=== PATIENT | male | born 1960 | race Caucasian/White ===

== ENCOUNTER 2018-01-23 00:25 | Inpatient (IN) | payer MEDICAID ==
[2018-01-23] MEDS ORDERED: MOM 30ML SUSPENSION UDC PO (01:45)
[2018-01-23] MEDS ORDERED: traZODone 50 MG TAB PO (01:45)
[2018-01-23] MEDS ORDERED: ACETAMINOPHEN TAB 650MG DOSE (2X325MG) PO (01:45)
[2018-01-23] MEDS ORDERED: MAALOX 30 ML SUSP *UDC PO (01:45)
[2018-01-23] MEDS: LEVOTHYROXINE 137MCG TABLET (0.137MG) PO (06:11)
[2018-01-23] MEDS: ENALAPRIL MALEATE 5 MG TAB PO ×2 (08:21→11:15)
[2018-01-23] MEDS: amLODIPine 10 MG TAB PO (08:21)
[2018-01-23] MEDS: METOPROLOL TARTRATE 100 MG TAB PO ×2 (08:22→20:40)
[2018-01-23] MEDS: FOLIC ACID 1 MG TAB PO (08:22)
[2018-01-23] MEDS ORDERED: METOPROLOL TARTRATE 100 MG TAB PO (09:00)
[2018-01-23 12:33] LABS: BASO % 0.3 % (0.0-1.0); EOS # 0.1 10^3/uL (0.0-0.50); EOS % 0.7 % (0.0-3.0); HEMATOCRIT 43.7 % (42.0-52.0); HEMOGLOBIN 15.2 g/dl (13.5-17.5); IMMATURE GRANULOCYTE % 0.2 % (0-3.0); LYMPH # 1.7 10^3/uL (1.5-4.5); LYMPH % 18.2 % (24.0-44.0); MEAN CORPUSCULAR HEMOGLOBIN 30.5 pg (27.0-33.0); MEAN CORPUSCULAR HGB CONC 34.8 g/dl (32.0-36.5); MEAN CORPUSCULAR VOLUME 87.8 fl (80.0-96.0); NEUTROPHILS # 6.3 10^3/uL (1.8-7.7); NEUTROPHILS % 69.6 % (36.0-66.0); PLATELET COUNT, AUTOMATED 302 10^3/uL (150-450); RED BLOOD COUNT 4.98 10^6/uL (4.30-6.10); WHITE BLOOD COUNT 9.1 10^3/uL (4.0-10.0)
[2018-01-23 13:03] LABS: ALBUMIN 3.9 GM/DL (3.2-5.2); ALKALINE PHOSPHATASE 104 U/L (45-117); ALT/SGPT 38 U/L (12-78); ANION GAP 8 MEQ/L (8-16); AST/SGOT 28 U/L (7-37); BILIRUBIN,TOTAL 0.3 MG/DL (0.2-1.0); BLOOD UREA NITROGEN 15 MG/DL (7-18); CARBON DIOXIDE LEVEL 28 MEQ/L (21-32); CHLORIDE LEVEL 101 MEQ/L (98-107); CPK CREATINE PHOSPHOKINASE 233 U/L (39-308); CREATININE FOR GFR 0.81 MG/DL (0.70-1.30); GLOMERULAR FILTRATION RATE > 60.0 (>56); GLUCOSE, FASTING 107 MG/DL (70-100); POTASSIUM SERUM 4.3 MEQ/L (3.5-5.1); SODIUM LEVEL 137 MEQ/L (136-145); TOTAL PROTEIN 7.8 GM/DL (6.4-8.2)
[2018-01-23] MEDS: ESCITALOPRAM OXALATE 5MG TABLET (LEXAPRO) PO (15:28)
[2018-01-24] MEDS: LEVOTHYROXINE 137MCG TABLET (0.137MG) PO (06:11)
[2018-01-24] MEDS: FOLIC ACID 1 MG TAB PO (08:31)
[2018-01-24] MEDS: amLODIPine 10 MG TAB PO (08:31)
[2018-01-24] MEDS: ESCITALOPRAM OXALATE 5MG TABLET (LEXAPRO) PO (08:31)
[2018-01-24] MEDS: ENALAPRIL MALEATE 10 MG TAB PO (08:32)
[2018-01-24] MEDS: METOPROLOL TARTRATE 100 MG TAB PO (08:32)
== END 2018-01-24 13:05 | disposition home or self-care (01) | DRG 775 ==
LOC: M ED 00:25 → M ED INP 01:36 → M PSY 02:50
DX: F10.94 Alcohol use, unspecified with alcohol-induced mood disorder (principal); R45.851 Suicidal ideations; Z88.1 Allergy status to other antibiotic agents; F17.210 Nicotine dependence, cigarettes, uncomplicated; I10 Essential (primary) hypertension; E78.00 Pure hypercholesterolemia, unspecified; E03.9 Hypothyroidism, unspecified; Z79.899 Other long term (current) drug therapy

== ENCOUNTER 2024-11-22 09:11 | Day surgery (SDC) | payer OTHER ==
[~2024-11-22] VITALS: Ht 165.1 cm; Wt 65.7 kg
[~2024-11-22 09:11] MED LIST: AMLO1TAB25 PO; B-1100TA2 PO; DULO1CAP6 PO; ENAL1TAB48 PO; ENAL1TAB50 PO; FERR325T19 PO; FOLITAB5 PO; FURO40TA2 PO; HYDR-3363 PO; LEVO125T4; LEVO137T2 PO; LEXA5TAB13 PO; LOPR1TAB7 PO; MAGN400T35 PO; MULT-90 PO; PANT40TA29; PARO20TA4 PO; PATIENT COMMENTS; PRAZ2CAP PO; RAMI10CA64 PO; RANI300C PO; TAMS1CAP17 PO; TRAZ1TAB10 PO; vit b12 PO
[2024-11-22] MEDS: LR 1,000 ML IV SCH (10:31)
[2024-11-22] MEDS ORDERED: SUGAMMADEX SODIUM 500 MG/5 ML VIAL (BRIDION) As Ordered ONE (11:37)
[2024-11-22] MEDS ORDERED: ONDANSETRON 4MG 2ML VIAL As Ordered ONE (11:37)
[2024-11-22] MEDS ORDERED: LIDOCAINE 2% 100MG/5ML SDV (FOR ANES.) As Ordered ONE (11:37)
[2024-11-22] MEDS ORDERED: propofoL 200 MG/20 ML VIAL As Ordered ONE (11:37)
[2024-11-22] MEDS ORDERED: MIDAZOLAM INJ 2MG/2ML VIAL As Ordered ONE (11:37)
[2024-11-22] MEDS ORDERED: ACETAMINOPHEN 1000MG/100ML IV BAG As Ordered ONE (11:37)
[2024-11-22] MEDS ORDERED: ROCURONIUM BROMIDE 50MG/5ML VIAL As Ordered ONE (11:37)
[2024-11-22] MEDS ORDERED: fentaNYL 100 MCG/2 ML INJECTION As Ordered ONE (11:37)
[2024-11-22] MEDS ORDERED: KETOROLAC 30 MG/ML 1ML VIAL As Ordered ONE (11:38)
[2024-11-22] MEDS ORDERED: ONDANSETRON 4MG 2ML VIAL IV PRN ×2 (12:55→16:55)
[2024-11-22] MEDS ORDERED: ACETAMINOPHEN 325 MG TAB PO PRN (12:55)
[2024-11-22] MEDS ORDERED: PERCOCET 5MG/325MG TAB PO PRN (12:55)
[2024-11-22] MEDS: HEPARIN SOD (PORCINE) 5000UNITS/ML 1ML VIAL/SYRINGE As Ordered ONE (13:04)
[2024-11-22] MEDS: ceFAZolin SOD 2 GM IV ONCE IV ONE (13:05)
[2024-11-22] MEDS: ceFAZolin SODIUM 2 GM VIAL As Ordered ONE (13:26)
[2024-11-22] MEDS ORDERED: HYDROmorphone HCL 2MG/ML 1ML VIAL As Ordered ONE (13:46)
[2024-11-22] MEDS: LIDOCAINE 1% SDV 30ML VIAL As Ordered ONE (16:55)
[2024-11-22] MEDS ORDERED: fentaNYL 100 MCG/2 ML INJECTION IV PRN (16:55)
[2024-11-22] MEDS ORDERED: oxyCODONE 5MG TAB PO PRN (16:55)
[2024-11-22 18:07] LABS: HEMATOCRIT 39.8 % (42.0-52.0); HEMOGLOBIN 12.8 g/dl (13.5-17.5); MEAN CORPUSCULAR HEMOGLOBIN 30.5 pg (27.0-33.0); MEAN CORPUSCULAR HGB CONC 32.2 g/dl (32.0-36.5); MEAN CORPUSCULAR VOLUME 94.8 fl (80.0-96.0); PLATELET COUNT, AUTOMATED 271 10^3/uL (150-450)
[2024-11-22 18:31] LABS: CALCIUM LEVEL 8.2 MG/DL (8.3-10.6); GLOMERULAR FILTRATION RATE 84.6 (>49); POTASSIUM SERUM 3.8 MMOL/L (3.5-5.1)
[2024-11-22 18:50] VITALS: BP 123/84; TEMP 97.5; O2SAT 90
[2024-11-22] MEDS: NS (Normal Saline) 0.9% 500 ML IV SCH (19:12)
[2024-11-22 19:30] VITALS: BP 120/74; TEMP 97.9; O2SAT 91
[2024-11-22 20:00] VITALS: BP 119/74; TEMP 98.1; O2SAT 93
[2024-11-22] MEDS: HEPARIN SOD (PORCINE) 5000UNITS/ML 1ML VIAL/SYRINGE SC SCH (20:38)
[2024-11-22] MEDS: ceFAZolin SOD 1 GM in DEXTROSE 5% (D5W) ADV/MINI-BAG 50 ML IV SCH (20:38)
[2024-11-22] MEDS: DOCUSATE SODIUM 100MG CAPSULE PO SCH (20:38)
[2024-11-22 21:00] VITALS: BP 118/74; TEMP 98.1; O2SAT 97
[2024-11-22 22:00] VITALS: BP 118/75; TEMP 97.9; O2SAT 95
[2024-11-22 23:00] VITALS: BP 118/74; TEMP 97.9; O2SAT 94
[2024-11-23] VITALS: BP 119/75; TEMP 98.1; O2SAT 93
[2024-11-23 04:00] VITALS: BP 121/72; TEMP 97.9; O2SAT 98
[2024-11-23] MEDS: LEVOTHYROXINE 125MCG TABLET (0.125MG) PO SCH (06:13)
[2024-11-23 06:24] LABS: HEMATOCRIT 33.7 % (42.0-52.0); HEMOGLOBIN 11.2 g/dl (13.5-17.5); MEAN CORPUSCULAR HEMOGLOBIN 30.9 pg (27.0-33.0); MEAN CORPUSCULAR HGB CONC 33.2 g/dl (32.0-36.5); MEAN CORPUSCULAR VOLUME 93.1 fl (80.0-96.0); PLATELET COUNT, AUTOMATED 245 10^3/uL (150-450); RED BLOOD COUNT 3.62 10^6/uL (4.30-6.10); WHITE BLOOD COUNT 10.5 10^3/uL (4.0-10.0)
[2024-11-23] MEDS: PERCOCET 5MG/325MG TAB PO PRN (06:25)
[2024-11-23 06:50] LABS: BLOOD UREA NITROGEN 22 MG/DL (9-23); CALCIUM LEVEL 7.9 MG/DL (8.3-10.6); CARBON DIOXIDE LEVEL 30 MMOL/L (20-31); CHLORIDE LEVEL 104 MMOL/L (98-107); CREATININE FOR GFR 0.86 MG/DL (0.70-1.30); GLOMERULAR FILTRATION RATE > 90.0 (>49); GLUCOSE, FASTING 85 MG/DL (74-106); POTASSIUM SERUM 4.2 MMOL/L (3.5-5.1); SODIUM LEVEL 140 MMOL/L (136-145)
[2024-11-23 07:59] VITALS: BP 123/74; TEMP 97.9; O2SAT 97
[2024-11-23] MEDS: FERROUS SULFATE 325MG TAB PO SCH (08:32)
[2024-11-23] MEDS: PANTOPRAZOLE 40MG TAB (PROTONIX) PO SCH (08:32)
[2024-11-23] MEDS: THIAMINE 100 MG TAB PO SCH (08:32)
[2024-11-23] MEDS: DULoxetine 30MG CAPSULE (CYMBALTA) PO SCH (08:32)
[2024-11-23 08:34] VITALS: BP 125/76
[2024-11-23] MEDS: PRAZOSIN 1 MG CAP PO SCH (09:00)
[2024-11-23 11:45] VITALS: BP 127/80; TEMP 98.1; O2SAT 91
[2024-11-23] MEDS ORDERED: PERCOCET PO (12:17)
[2024-11-23] MEDS ORDERED: BACT800T5 PO (12:17)
[2024-11-23] MEDS ORDERED: COLA100C5 PO (12:17)
[2024-11-23 16:12] VITALS: BP 132/92; TEMP 98.6; O2SAT 92
== END 2024-11-23 18:39 | disposition home or self-care (01) ==
LOC: M SDC 09:11 → M MSPAV 18:47 → M SDC 11-23 18:39
PROVIDERS: ATTEND Urology
DX: C61 Malignant neoplasm of prostate (principal); I11.0 Hypertensive heart disease with heart failure; I50.9 Heart failure, unspecified; Z86.73 Personal history of transient ischemic attack (TIA), and cerebral infarction without residual deficits; R06.02 Shortness of breath; G47.9 Sleep disorder, unspecified; Z88.0 Allergy status to penicillin; Z79.899 Other long term (current) drug therapy; F17.210 Nicotine dependence, cigarettes, uncomplicated
CPT/HCPCS: 36415; 55866; 80048; 85027; 86850; 86900; 86901; 88309; 96365; 96376; J0131; J0665; J0690; J1100; J1171; J1885; J2250; J2405; J3010